=== PATIENT | male | born 1990 | race African-American/Black ===

== ENCOUNTER 2018-01-06 17:35 | Emergency (ER) | payer MEDICAID ==
[~2018-01-06] VITALS: Ht 175.3 cm; Wt 90.7 kg
[2018-01-06 17:42] VITALS: BP 122/89
[2018-01-06 18:20] VITALS: BP 125/78
== END 2018-01-06 18:20 | disposition home or self-care (01) ==
LOC: MED 17:35
DX: J20.9 Acute bronchitis, unspecified (principal); Z88.8 Allergy status to other drugs, medicaments and biological substances
CPT/HCPCS: 99283